=== PATIENT | male | born 2005 | race Caucasian/White ===

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

== ENCOUNTER 2025-03-28 16:27 | Emergency (ER) | payer OTHER ==
[2025-03-28 16:56] VITALS: BP 114/77; PULSE 96; RESP 20; TEMP 98; BMI 23.9
[2025-03-28] MEDS ORDERED: predniSONE 10 MG TABLET (UD) ONE (17:39)
[2025-03-28] MEDS ORDERED: ALBUTEROL SO4 2.5/IPRATROPIUM 0.5 INH SOL 3 ML VIAL.NEB. NEB ONE (17:39)
[2025-03-28] MEDS ORDERED: predniSONE 20 MG TABLET (UD) ONE (17:39)
[2025-03-28] MEDS: predniSONE 20 MG TABLET (UD) PO ONE (17:48)
[2025-03-28] MEDS: ALBUTEROL SO4 2.5/IPRATROPIUM 0.5 INH SOL 3 ML VIAL.NEB. NEB ONE (17:48)
== END 2025-03-28 18:28 | disposition home or self-care (01) ==
LOC: JERFT 16:27 → JER 16:27 → JERFT 18:28
PROC: 3E0F7GC Introduction of Other Therapeutic Substance into Respiratory Tract, Via Natural or Artificial Opening (ICD-10-PCS; principal; 2025-03-28)
DX: U07.1 COVID-19 (principal); J45.901 Unspecified asthma with (acute) exacerbation; J06.9 Acute upper respiratory infection, unspecified; R07.89 Other chest pain; R09.89 Other specified symptoms and signs involving the circulatory and respiratory systems; R05.9 Cough, unspecified; Z76.0 Encounter for issue of repeat prescription
CPT/HCPCS: 0241U-QW; 99283-25